=== PATIENT | female | born 1995 | race Caucasian/White ===

== ENCOUNTER 2019-10-14 00:09 | Emergency (ER) | payer OTHER ==
--- NOTE | 2019-10-14 03:14 | RADIOLOGY REPORT (SQ) ---
EXAM DESCRIPTION: XR SHOULDER 2 OR MORE VIEWS COMPLETED DATE/TME: 10/14/2019 00:00 CLINICAL HISTORY: 23 years, Female, shoulder deformity, shoulder pain COMPARISON: None. NUMBER OF VIEWS: 3 TECHNIQUE: 3 views right shoulder LIMITATIONS: None. FINDINGS: The humerus appears internally rotated. However no discrete fracture and no definitive dislocation. Joint spaces are otherwise preserved IMPRESSION: Internal rotation of the humerus is suggested with no acute fracture copyright 2010 [employer]- All Rights Reserved
[2019-10-14] MEDS ORDERED: ACETAMINOPHEN 325 MG TABLET PO ONE (04:06)
[2019-10-14] MEDS ORDERED: DIAZEPAM INJ 10 MG/2 ML DISP.SYRIN IV ONE (04:26)
[2019-10-14] MEDS ORDERED: KETOROLAC TROMETHAMINE INJ/PF 30 MG/1 ML SDV IV ONE (04:26)
[2019-10-14] MEDS ORDERED: NORMAL SALINE 1000 ML 1,000 ML IV ONE (04:26)
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
[2019-10-14 06:36] VITALS: BP 110/72
== END 2019-10-14 06:34 | disposition home or self-care (01) ==
LOC: ER 00:09
DX: M25.511 Pain in right shoulder (principal); M62.830 Muscle spasm of back; M79.601 Pain in right arm; M54.6 Pain in thoracic spine
CPT/HCPCS: 99283; 96361; 96374; 96375; 73030; J3360; J1885; J7030